=== PATIENT | male | born 2000 ===

== ENCOUNTER 2024-05-19 15:00 | Emergency (ER) | payer OTHER ==
[~2024-05-19] VITALS: Ht 170.2 cm; Wt 78.2 kg
[2024-05-19 15:55] VITALS: BP 139/79
== END 2024-05-19 16:04 | disposition home or self-care (01) ==
LOC: ED 15:00
DX: S01.512A Laceration without foreign body of oral cavity, initial encounter (principal); S01.511A Laceration without foreign body of lip, initial encounter; Y04.2XXA Assault by strike against or bumped into by another person, initial encounter
CPT/HCPCS: 99283